=== PATIENT | female | born 2000 | race Two or more races ===

== ENCOUNTER 2023-05-30 11:19 | Emergency (ER) | payer OTHER ==
[2023-05-30 11:31] VITALS: BP 136/84; PULSE 98; RESP 16; TEMP 99; BMI 31.3
[2023-05-30] MEDS ORDERED: ACETAMINOPHEN 325 MG TABLET (FP) PO ONE (12:14)
[2023-05-30] MEDS ORDERED: ACETAMINOPHEN 325 MG TABLET (FP) ONE (12:21)
[2023-05-30] MEDS ORDERED: DEXAMETHASONE SOD PHOSPHATE 4 MG/1 ML VIAL IM ONE (12:53)
[2023-05-30] MEDS ORDERED: DEXAMETHASONE SOD PHOSPHATE 4 MG/1 ML VIAL ONE (12:59)
[2023-05-30 13:09] LABS: THROAT:GRP A STREP NOT DETECTED (NOTDETECTED)
== END 2023-05-30 13:03 | disposition home or self-care (01) ==
LOC: JERFT 11:19
PROC: 3E023GC Introduction of Other Therapeutic Substance into Muscle, Percutaneous Approach (ICD-10-PCS; principal; 2023-05-30)
DX: J02.9 Acute pharyngitis, unspecified (principal); R07.0 Pain in throat; H92.01 Otalgia, right ear; H66.91 Otitis media, unspecified, right ear; Z20.822 Contact with and (suspected) exposure to COVID-19
CPT/HCPCS: 0241U-QW; 87651; 99284-25

== ENCOUNTER 2024-05-24 18:52 | Emergency (ER) | payer OTHER ==
[2024-05-24 19:01] VITALS: BP 143/81; PULSE 81; RESP 18; TEMP 97.9; BMI 32.8
[2024-05-24 20:39] LABS: THROAT:GRP A STREP NOT DETECTED (NOTDETECTED)
== END 2024-05-24 21:39 | disposition home or self-care (01) ==
LOC: JER 18:52 → JERFT 18:52
DX: R06.02 Shortness of breath (principal); J22 Unspecified acute lower respiratory infection; R05.9 Cough, unspecified; R09.89 Other specified symptoms and signs involving the circulatory and respiratory systems; R07.89 Other chest pain; Z20.822 Contact with and (suspected) exposure to COVID-19
CPT/HCPCS: 0241U-QW; 87651; 93005; 93010; 99284-25